=== PATIENT | female | born 1985 | race Caucasian/White ===

== ENCOUNTER 2018-05-19 09:19 | Emergency (ER) | payer MEDICAID, SELFPAY ==
[2018-05-19 09:34] VITALS: BP 129/83; PULSE 83; RESP 16; TEMP 37.1; O2SAT 99
--- NOTE | 2018-05-19 10:11 | NUR.NOTE ---
Nursing Note: Pts wound was covered with 4x4 gauze, covered with wrap gauze, secured with tape. Tolerated without complaint
--- NOTE | 2018-05-19 10:14 | ED.GENADUL_ITS ---
Disposition Clinical Impression: Abscess Disposition: HOME Condition: Good Instructions: Abscess (ED) Additional Instructions: Please take the antibiotics as directed. Please take Tylenol Motrin for pain. Please follow-up with your family doctor soon as possible. If you notice any worsening of your symptoms, or any new symptoms such as vomiting, diarrhea, fever, chills, shortness of breath, chest pain, numbness, weakness, or fainting , please return immediately to the emergency department for reevaluation. Please follow up with your primary care provider as soon as possible for reassessment and reevaluation. As always, it was a pleasure participating in your medical care today. Prescriptions: Clindamycin [Cleocin] 450 mg PO TID #30 cap Referrals: Sami Carrillo MD [Primary Care Provider] - Medical Decision Making - Medical Decision Making This is a pleasant 32-year-old female who presents with signs and symptoms consistent with an abscess in the right forearm. Currently she has no fever, vital signs are stable. The area was incised and drained with nursing at bedside. A notable amount of purulent discharge was removed. No significant bleeding. The area was packed. The patient tolerated this well. We will give her first dose of clindamycin here, then I do think she warrants home antibiotics secondary to the erythema, and subjective home history of fever although she is afebrile now. We outlined the erythematous area, we have instructed her for close follow-up, and prompt return if she notes any worsening of her symptoms, any signs of sepsis, worsening infection, or discharge. We discussed red flags which returned the patient understands. I have extensively reviewed the treatment plan and discharge instructions with the patient. I have addressed all patient concerns at this time. The patient was made aware of what symptoms to monitor for that would warrant a return to the emergency department. Discussed the plan with the patient, they demonstrate verbal understanding and agreement with our assessment and plan at this time. Time out was taken to identify the correct patient, procedure, and site. Risks and benefits were discussed with the patient and consent was obtained. Ultrasound was used to locate the site of maximal fluid collection. The site was sterilized and draped in the typical fashion. Lidocaine 1% with epinephrine 5ml was instilled into the surrounding tissue. Appropriate analgesia was obtained. The abscess was incised with an 11 blade, and purulent material and blood were expressed. The wound was flushed with sterile saline under pressure irrigation. The wound was packed, cleaned, and dressed. Blood loss was minimal. The patient tolerated the procedure well. There were no complications History of Present Illness - General Chief complaint: RashLesion Stated complaint: UNKNOWN Time Seen by Provider: 05/19/18 09:40 - History of Present Illness Initial comments: This is a 32-year-old female with no significant past medical history who presents today for evaluation of pain swelling, and concern of abscess in her left forearm. Patient states that 3 days ago something broken her car engine, she reached her arm in any got pinched by the serpentine belt. Since then she has had mild pain but over the last 24 hours she has noted swelling, redness, and occasional fever and chills at home. T-max was 102 last night which she took Tylenol for this and had no significant fever after that. Patient denies any recent IV or illicit drug use but does have a very difficult distant history of IV drug use. She admits to current tobacco use, but denies any surgeries. She denies any pertinent family history. Review of systems is negative for vomiting, diarrhea, chest pain, shortness of breath, headache, vision change, hematochezia melena or acholic stool. She has no other complaints at this time. - Related Data Clindamycin [Cleocin] 450 mg PO TID #30 cap 05/19/18 Allergies Allergy/AdvReac Type Severity Reaction Status Date / Time codeine [Codeine] AdvReac Mild Nausea Unverified 05/19/18 09:35 Review of Systems Other: 10 point review of systems was performed, pertinent positives and negatives are noted in the history of present illness. Past Medical History - Past Medical History hx of IVDA, sober since 2012 Surgical history: , other (endometriosis surgery) - Social History Alcohol use: none Drug use: none General Exam - Other Other exam information: 1.Const: Well-nourished, Well-developed, appearing stated age 2.Eyes: PERRL, no conjunctival injection, and symmetrical lids. 3.ENT: Atraumatic external nose and ears. Moist MM. Neck: Symmetric, trachea midline, No thyromegaly. 4.CVS: +S1/S2, No murmurs or gallops. Peripheral pulses 2+ and equal in all extremities. Brisk capillary refill in all extremities. 5.RESP: Unlabored respiratory effort. Clear to auscultation bilaterally. No wheezes rales or rhonchi 6.GI: Soft, Nontender/Nondistended, No hepatosplenomegaly. No guarding or rebound. 7.MSK: Normocephalic/Atraumatic, Extremities w/o deformity or ttp No cyanosis or clubbing, Normal movement of all extremities. Right forearm demonstrates a 4 cm erythematous lesion with fluctuance in the center. No active drainage. No pulsatile movement. Notable tenderness in this area. Bedside ultrasound was performed which demonstrated no significant venous structures in the area, there was evidence of abscess roughly 4 mm in diameter. No evidence of arterial aneurysm. No other abnormalities. 8.Skin: Warm, Dry. No rashes or lesions. 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 Sensation grossly intact, no focal neurologic deficits. 10.Psych: (AAO) x3. Appropriate mood and affect Course Vital Signs - 24 hr 05/19/18 09:34 Temperature 37.1 C Pulse 83 Respiratory 16 Rate Blood Pressure 129/83 Pulse Oximetry 99
[2018-05-19] MEDS: Clindamycin 150 MG CAP 450 MG PO (10:16)
== END 2018-05-19 10:31 | disposition home or self-care (01) ==
LOC: ER 12-30 13:21
PROVIDERS: Emergency Provider Student in an Organized Health Care Education/Training Program; PCP Internal Medicine
DX: L02.413 Cutaneous abscess of right upper limb (principal); R50.9 Fever, unspecified; W24.1XXA Contact with transmission devices, not elsewhere classified, initial encounter
CPT/HCPCS: 10061

== ENCOUNTER 2018-05-21 11:42 | Emergency (ER) | payer MEDICAID, SELFPAY ==
[2018-05-21 11:49] VITALS: BP 109/69; PULSE 84; RESP 18; TEMP 36.4; O2SAT 95
--- NOTE | 2018-05-21 12:22 | ED.GENADUL_ITS ---
Disposition Clinical Impression: Abscess of right forearm Disposition: HOME Condition: Good Instructions: Abscess (ED) Additional Instructions: Home to rest with arm elevated above the level of the heart most of the day. Continue clindamycin. Perform dressing changes to be discussed in 36 hours time, pat dry, place large Band-Aid over top. Please follow-up with Dr. Stafford in clinic May 23 at 10:15 AM. Return to the emergency department for any acute change to condition in the interim. Forms: Work Release Medical Decision Making - Medical Decision Making 32-year-old female returns for evaluation of right forearm abscess for which he was seen in the emergency department 48 hours ago. At that time incision and drainage was performed with release of purulent fluid, iodoform gauze packing placed and patient placed on clindamycin. She returns complaining of ongoing drainage and discomfort. Her exam is somewhat reassuring. Area was anesthetized, irrigated with 250 cc of fluid, explored and septations opened. No significant purulent fluid was discharged. A culture was taken. I repacked the wound loosely, followed by Xeroform gauze and Kerlix dressing. She will perform a dressing change in 36 hours. Patient will continue clindamycin. We have established follow-up in outpatient surgical clinic for her May 23 at 10:[address] Stafford. History of Present Illness - General Chief complaint: Cellulitis Stated complaint: INFECTION ON ARM Time Seen by Provider: 05/21/18 11:57 Source: patient, family, RN notes reviewed Mode of arrival: ambulatory Limitations: no limitations - History of Present Illness Initial comments: Right arm abscess: 32-year-old female seen in the emergency department 2 days ago for right upper extremity forearm abscess that was incised, drained, packed with iodoform gauze and for which she has been taking clindamycin. She returns today for recurrent foul-smelling discharge and mild increase in pain which she describes as dull, achy, moderate and constant. No fever. She has otherwise been well. - Related Data Clindamycin [Cleocin] 450 mg PO TID #30 cap 05/19/18 Acetaminophen [Tylenol] 1,000 mg PO PRN PRN 05/21/18 Allergies Allergy/AdvReac Type Severity Reaction Status Date / Time codeine [Codeine] AdvReac Mild Nausea Unverified 05/21/18 11:54 Review of Systems Other: 6 systems reviewed, otherwise negative Past Medical History - Past Medical History hx of IVDA, sober since 2012 Surgical history: , other (endometriosis surgery) - Social History Alcohol use: none Drug use: none General Exam - General Limitations: no limitations General appearance: alert, in no apparent distress - Head Head exam: Present: atraumatic, normocephalic - Eye Eye exam: Present: PERRL, EOMI - Respiratory Respiratory exam: Absent: respiratory distress - Extremities Exam Extremities exam: Present: normal inspection, normal capillary refill, other ( Right upper extremity volar forearm with 1 cm open area at central portion of approximately 4 cm indurated abscess. Minimal surrounding erythema. No significant purulent discharge.) - Neurological Exam Neurological exam: Present: alert, oriented X3 - Psychiatric Psychiatric exam: Present: normal affect, normal mood - Skin Skin exam: Present: warm, dry, intact Course Vital Signs - 24 hr 05/21/18 11:49 Temperature 36.4 C L Pulse 84 Respiratory 18 Rate Blood Pressure 109/69 Pulse Oximetry 95
== END 2018-05-21 12:29 | disposition home or self-care (01) ==
PROVIDERS: Emergency Provider Emergency Medicine; PCP Internal Medicine
DX: L02.413 Cutaneous abscess of right upper limb (principal); B95.61 Methicillin susceptible Staphylococcus aureus infection as the cause of diseases classified elsewhere
CPT/HCPCS: 10061; 87077; 87070; 87186; 87205

== ENCOUNTER 2018-05-25 16:14 | Emergency (ER) | payer MEDICAID, SELFPAY ==
[2018-05-25 16:24] VITALS: BP 127/83; PULSE 97; RESP 16; TEMP 36.2; O2SAT 123
--- NOTE | 2018-05-25 16:39 | ED.GENADUL ---
Disposition Clinical Impression: Trauma of ear canal Disposition: HOME Condition: Stable Instructions: Ear Foreign Body (ED), Cerumen Impaction (ED) Additional Instructions: Return immediately if you begin having any significant amount of discharge from the ear, fever, significant worsening of pain and discomfort. Otherwise do not insert anything in to ear to allow the area of irritation. Referrals: Sami Carrillo MD [Primary Care Provider] - (As needed for reassessment or if your discomfort is not improving in 1-2 weeks) Medical Decision Making - Medical Decision Making Patient presenting to the emergency department for foreign body into right ear. Patient states taking a hard and black object out of the ear with no obvious signs of it being an insect but was concerned for that. Patient is anxious about possible insect that was in her ear but I feel after talking to her and visual examination that she had a mild cerumen impaction that she removed with a Rayray pin and had slight trauma to the ear canal that is very mild. Patient was encouraged to not place any objects into her ears to allow the trauma to heal and to return immediately for any signs of infection that were thoroughly discussed. After discussion of diagnosis and plan of care with patient patient agreed and stated no further needs, questions, or concerns at this time. History of Present Illness - General Chief complaint: EarProblem Stated complaint: SOMETHING IN EAR Time Seen by Provider: 05/25/18 16:38 Source: patient, RN notes reviewed Mode of arrival: ambulatory Limitations: no limitations - History of Present Illness Initial comments: Patient reports just prior to arrival she felt something in her right ear and was cleaning it out with a Rayray-pin. She got a hardened piece of black substance that had some skin attached. She did note a little bit of bleeding afterwards and is concerned that this was a bug. She states no scraping sensation or change in hearing. She tried to examine what she removed and said it was hard like a rock with no legs antennae but is unsure what it was. Patient denies any other symptoms at this time. Onset/Timin -: minutes(s) Location: right (ear) Severity scale (1-10): 4 Quality: aching Consistency: constant Improves with: none Worsens with: none Associated Symptoms: denies other symptoms Treatments Prior to Arrival: none - Related Data Clindamycin [Cleocin] 450 mg PO TID #30 cap 05/19/18 Acetaminophen [Tylenol] 1,000 mg PO PRN PRN 05/21/18 Allergies Allergy/AdvReac Type Severity Reaction Status Date / Time codeine [Codeine] AdvReac Mild Nausea Unverified 05/21/18 11:54 Review of Systems Constitutional: no symptoms reported ENT: ear pain Respiratory: no symptoms reported Comment: All other systems reviewed and negative Past Medical History - Past Medical History hx of IVDA, sober since 2012 Surgical history: , other (endometriosis surgery) - Social History Smoking status: current everyday smoker Alcohol use: none Drug use: none General Exam - General Limitations: no limitations General appearance: alert, in no apparent distress - Eye Eye exam: Present: normal apperance - ENT ENT exam: Present: mucous membranes moist, TM's normal bilaterally. Absent: normal external ear exam (Patient has a small linear abrasion to the posterior aspect of the right ear canal that is closer to the opening of the ear then the TM. No bleeding is further noted and only mild erythema surrounding the area. No exudates or significant edema noted) - Neck Neck exam: Present: full ROM. Absent: lymphadenopathy - Respiratory Respiratory exam: Absent: respiratory distress - Neurological Exam Neurological exam: Present: alert, oriented X3, normal gait. Absent: altered Course Vital Signs - 24 hr 05/25/18 16:24 Temperature 36.2 C L Pulse 97 H Respiratory 16 Rate Blood Pressure 127/83 Pulse Oximetry 123 H
[2018-05-25 16:45] VITALS: BP 127/83; PULSE 97; RESP 16; TEMP 36.2; O2SAT 123
== END 2018-05-25 16:45 | disposition home or self-care (01) ==
PROVIDERS: Emergency Provider Physician Assistant; PCP Internal Medicine
DX: S09.91XA Unspecified injury of ear, initial encounter (principal); T16.1XXA Foreign body in right ear, initial encounter
CPT/HCPCS: 99283; 99281

== ENCOUNTER 2018-08-29 10:48 | Emergency (ER) | payer MEDICAID, SELFPAY ==
[2018-08-29 10:52] VITALS: BP 144/99; PULSE 88; RESP 14; TEMP 37; O2SAT 98
--- NOTE | 2018-08-29 10:54 | W.ED.GENAD ---
Discharge Plan Disposition Patient Disposition: HOME Condition: Stable Discharge Details Chief Complaint: DentalOral Clinical Impression: Dental infection Primary Care Provider: Sami Carrillo ED Provider: Luis Salazar Home Meds and New Rx's Prescriptions: New clindamycin HCl 150 mg capsule 450 mg PO TID 10 Days Qty: 90 RF: 0 Continue acetaminophen [Mapap Extra Strength] 500 MG tablet 1,000 mg PO PRN PRNRF: 0 methadone 5 mg Tablet RF: 0 Discharge Instructions Instructions: Dental Caries (ED), Toothache (ED) Additional Instructions: follow up with your dentist within 2 weeks you can take 1000mg tylenol and 600mg ibuprofen every 6 hours for pain as needed Medical Decision Making 33 yo female with hx of substance abuse now on methadone, who comes in with left upper dental pain since last night. Denies fevers and has no stridor or drooling on exam. No pain over hyoid or restricted neck movements on exam. eomi without pain. Has numerous dental caries on exam and pain with palpation to the left upper anterior molars, no visible abscess I can drain at the bedside. Normal posterior oropharynx, midline uvula. No evidence of ludwigs, epiglotitis, rpa, scow captain at this time. Will start abx and have her f/u with dentist, return precautions given Differential Diagnosis dental caries, dental abscess, dental infection HPI General Mode of arrival: ambulatory. Date/Time Provider Initiated Documentation: 08/29/18 10:49. Limitations to Documentation: no limitations. Information obtained by: patient. History of Present Illness 33 year old F presents to the emergency department with the chief complaint of left upper tooth pain, described as severe, with intensity rated at 10. Quality is described as aching, and is localized to the mouth. Patient reports no radiation. Patient started experiencing this day(s) (1) and it has been constant. No relieving factors improve symptom(s), No exacerbating factors reported . Patient notes no other symptoms.. Patient did receive the following treatments prior to arrival, NSAID Related Data Home Medications Medication Instructions Recorded Confirmed acetaminophen [Mapap Extra 1,000 mg PO PRN PRN 05/21/18 08/29/18 Strength] clindamycin HCl 450 mg PO TID 10 Days #90 cap 08/29/18 methadone 08/29/18 Previous Rx's Medication Instructions Recorded clindamycin HCl 450 mg PO TID 10 Days #90 cap 08/29/18 Allergies Allergy/AdvReac Type Severity Reaction Status Date / Time codeine [Codeine] AdvReac Mild Nausea Unverified 05/21/18 11:54 General Stated Complaint: DentalOral DESIRE: 4 Review of Systems Review of Systems All systems reviewed & are unremarkable except as noted in HPI and below Constitutional Denies chills, Denies fever(s) and Denies weakness Eyes Denies loss of vision ENT Denies change in voice Cardiovascular Denies chest pain and Denies dyspnea Respiratory Denies dyspnea Gastrointestinal Denies abdominal pain, Denies nausea and Denies vomiting Neurologic Denies loss of vision and Denies weakness Psychiatric Denies depression PFSH Family History Mother Chiari I malformation Medical History Abnormal Pap smear of cervix Anxiety Hepatitis C virus infection Opiate dependence Tobacco abuse Social History Smoking/Tobacco Use Status: Current every day Exam Const General: no acute distress Orientation: alert HENMT Head: normal to inspection Ears: external ears normal General nose exam: external nose normal Mouth: moist mucous membranes Eyes General: appearance normal, both eyes and all related structures Neck Neck: normal visual inspection Resp Effort & Inspection: normal respiratory effort and able to speak in complete sentences Cardio Rate: regular rate Skin General skin exam: no rashes or lesions noted Neuro General: alert and oriented x3 Extrem General: normal to inspection Psych Mental Status: mental status grossly normal Course Vital Signs Temperature 37.0 C 08/29/18 10:52 Pulse 88 08/29/18 10:52 Respiratory Rate 14 08/29/18 10:52 Blood Pressure 144/99 H 08/29/18 10:52 Pulse Oximetry 98 08/29/18 10:52 Temperature 37.0 C 08/29/18 10:52 Temperature Source Temporal Artery Scan 08/29/18 10:52 Pulse 88 08/29/18 10:52 Respiratory Rate 14 08/29/18 10:52 Blood Pressure 144/99 H 08/29/18 10:52 Blood Pressure Position Sitting 08/29/18 10:52 Pulse Oximetry 98 08/29/18 10:52 Oxygen Delivery Method Room Air 08/29/18 10:52 Oxygen Flow Rate 0 08/29/18 10:52
--- NOTE | 2018-08-29 10:59 | ED.GENADUL_ITS ---
Discharge Plan Disposition Patient Disposition: HOME Condition: Stable Discharge Details Chief Complaint: DentalOral Clinical Impression: Dental infection Primary Care Provider: Sami Carrillo ED Provider: Luis Salazar Home Meds and New Rx's Prescriptions: New clindamycin HCl 150 mg capsule 450 mg PO TID 10 Days Qty: 90 RF: 0 Continue acetaminophen [Mapap Extra Strength] 500 MG tablet 1,000 mg PO PRN PRNRF: 0 methadone 5 mg Tablet RF: 0 Discharge Instructions Instructions: Dental Caries (ED), Toothache (ED) Additional Instructions: follow up with your dentist within 2 weeks you can take 1000mg tylenol and 600mg ibuprofen every 6 hours for pain as needed Medical Decision Making 33 yo female with hx of substance abuse now on methadone, who comes in with left upper dental pain since last night. Denies fevers and has no stridor or drooling on exam. No pain over hyoid or restricted neck movements on exam. eomi without pain. Has numerous dental caries on exam and pain with palpation to the left upper anterior molars, no visible abscess I can drain at the bedside. Normal posterior oropharynx, midline uvula. No evidence of ludwigs, epiglotitis , rpa, derrick boat captain at this time. Will start abx and have her f/u with dentist, return precautions given Differential Diagnosis dental caries, dental abscess, dental infection HPI General Mode of arrival: ambulatory . Date/Time Provider Initiated Documentation: 08/29/18 10:49 . Limitations to Documentation: no limitations . Information obtained by: patient . History of Present Illness 33 year old F presents to the emergency department with the chief complaint of left upper tooth pain, described as severe, with intensity rated at 10. Quality is described as aching, and is localized to the mouth. Patient reports no radiation. Patient started experiencing this day(s) (1) and it has been constant. No relieving factors improve symptom(s), No exacerbating factors reported . Patient notes no other symptoms.. Patient did receive the following treatments prior to arrival, NSAID Related Data Home Medications Medication Instructions Recorded Confirmed acetaminophen [Mapap Extra 1,000 mg PO PRN PRN 05/21/18 08/29/18 Strength] clindamycin HCl 450 mg PO TID 10 Days #90 cap 08/29/18 methadone 08/29/18 Previous Rx's Medication Instructions Recorded clindamycin HCl 450 mg PO TID 10 Days #90 cap 08/29/18 Allergies Allergy/AdvReac Type Severity Reaction Status Date / Time codeine [Codeine] AdvReac Mild Nausea Unverified 05/21/18 11:54 General Stated Complaint: DentalOral DESIRE: 4 Review of Systems Review of Systems All systems reviewed & are unremarkable except as noted in HPI and below Constitutional Denies chills, Denies fever(s) and Denies weakness Eyes Denies loss of vision ENT Denies change in voice Cardiovascular Denies chest pain and Denies dyspnea Respiratory Denies dyspnea Gastrointestinal Denies abdominal pain, Denies nausea and Denies vomiting Neurologic Denies loss of vision and Denies weakness Psychiatric Denies depression PFSH Family History Mother Chiari I malformation Medical History Abnormal Pap smear of cervix Anxiety Hepatitis C virus infection Opiate dependence Tobacco abuse Social History Smoking/Tobacco Use Status: Current every day Exam Const General: no acute distress Orientation: alert HENMT Head: normal to inspection Ears: external ears normal General nose exam: external nose normal Mouth: moist mucous membranes Eyes General: appearance normal, both eyes and all related structures Neck Neck: normal visual inspection Resp Effort & Inspection: normal respiratory effort and able to speak in complete sentences Cardio Rate: regular rate Skin General skin exam: no rashes or lesions noted Neuro General: alert and oriented x3 Extrem General: normal to inspection Psych Mental Status: mental status grossly normal Course Vital Signs Temperature 37.0 C 08/29/18 10:52 Pulse 88 08/29/18 10:52 Respiratory Rate 14 08/29/18 10:52 Blood Pressure 144/99 H 08/29/18 10:52 Pulse Oximetry 98 08/29/18 10:52 Temperature 37.0 C 08/29/18 10:52 Temperature Source Temporal Artery Scan 08/29/18 10:52 Pulse 88 08/29/18 10:52 Respiratory Rate 14 08/29/18 10:52 Blood Pressure 144/99 H 08/29/18 10:52 Blood Pressure Position Sitting 08/29/18 10:52 Pulse Oximetry 98 08/29/18 10:52 Oxygen Delivery Method Room Air 08/29/18 10:52 Oxygen Flow Rate 0 08/29/18 10:52
== END 2018-08-29 11:07 | disposition home or self-care (01) ==
PROVIDERS: Emergency Provider Emergency Medicine; PCP Internal Medicine
DX: K04.7 Periapical abscess without sinus (principal)
CPT/HCPCS: 99283